=== PATIENT | female | born 1995 | race Caucasian/White ===

== ENCOUNTER 2024-06-26 06:14 | Emergency (ER) | payer OTHER, SELFPAY ==
[2024-06-26 06:17] VITALS: BP 114/76; PULSE 92; TEMP 36.9; O2SAT 100; BMI 25.0
--- NOTE | 2024-06-26 06:35 | ECG_ITS ---
The [facility] Test Date: 2024-06-26 Pat Name: ELIZABETH TAVARES Department: Room: - Gender: Female Skiver Hand: : 1995 Requested By: [id number] Order Number: [id number] Reading MD: RUBENS PERSAUD Measurements Intervals [place] Rate: 86 P: 79 MA: 132 QRS: 84 QRSD: 100 T: 68 QT: 376 QTc: 420 Interpretive Statements 1100 Sinus rhythm 2420 RSR (QR) in lead V1/V2, consistent with right ventricular conduction delay 9130 borderline ECG No previous ECG available for comparison Electronically Signed On 06-28-2024 16:27:30 EST by RUBENS PERSAUD
--- NOTE | 2024-06-26 06:38 | ED.GENADUL1 ---
HPI HPI - General Adult General Chief complaint: Skin/Abscess/Foreign Body Stated complaint: OTHER SKIN Time Seen by Provider: 06/26/24 06:25 Source: patient Mode of arrival: walk-in Limitations: no limitations History of Present Illness HPI narrative: This 28-year-old female presents for evaluation of an open draining abscess on her right upper abdominal wall. That has been present for approximately 1 week. She states she has been picking at it has been bleeding and a certain amount of purulent drainage has been coming out of it. Additionally she states that on June 12 she had a seizure or 2. She lives with a roommate who has security cameras in the house. She states that he came home and thought she had been given a kosta or something because of the way she was acting. The patient states that all she remembers is being at home and waking up on the floor. She broke off both front teeth and one of the teeth was in her lower lip. She had bit her tongue. She states she twisted her ankle and also hit her head as far as she knows when she had the seizure. She does not think she is because prior to having the seizure she had taken a test. She states that since the seizure she has had trouble remembering things. She tried to call around to get an appointment to get evaluated for the seizure but cannot get into see anybody so she came to the emergency department for evaluation. The patient does state that she has a history of migraine headaches and in the past had attacks of brief episodes of blindness followed by syncope. She was seen at [facility] and told that she was having 'Vulgar attacks'. At this time she denies any headache. She has no blurred vision slurred speech or confusion. Her neuroexam is normal. Related Data Previous Rx's ?Medication ?Instructions ?Recorded clindamycin HCl 300 mg capsule 300 mg PO Q6H 10 days #40 caps 06/26/24 Allergies Allergy/AdvReac Type Severity Reaction Status Date / Time No Known Drug Allergies Allergy Verified 06/26/24 06:21 Opioid HPI Opioid Management Most Recent Opioid Data: Ur Phencyclidine Scrn Negative (NEGATIVE) 06/26/24 07:35 06/26/24 Review of Systems ROS Status of ROS 10 or more systems reviewed and unremarkable except as noted in history and below PFSH PFSH Social History Little interest or pleasure in doing things: not at all Feeling down, depressed, or hopeless: not at all Exam Narrative Exam Narrative: Vital signs and Nursing Notes reviewed: Patient is afebrile with a normal pulse, normal blood pressure, she is not hypoxic with pulse ox of 100% on room air General: Awake, alert, oriented, no acute distress, lying comfortably on the stretcher HEENT: Normocephalic atraumatic, mucous membranes are moist and pink, eyes are clear, normal conjunctiva, vision is grossly intact, posterior pharynx is normal in appearance. Patient's front teeth have been broken in the center. No sign of necrotizing gingivitis. No jaw tenderness Neck: Supple, no meningeal signs, no anterior or posterior cervical lymphadenopathy Chest: Lungs are clear to auscultation with good air entry, there is no wheezing rhonchi or rales appreciated no accessory muscle use, patient is speaking in complete sentences-no chest wall tenderness to palpation CVS: Regular rate and rhythm S1-S2, no murmurs rubs or gallops, pulses are brisk and equal bilaterally ABD: Soft, nondistended, nontender, no rebound guarding or rigidity, bowel sounds are normal, no pulsatile masses appreciated Extremities: Moving all extremities, no lower extremity tenderness or swelling noted, negative Homans' sign, pulses are brisk and equal bilaterally Skin: Approximately 1 cm x 1 cm soft, fluctuant abscess to the right upper abdominal wall. There is mild local erythema but no sign of diffuse cellulitis Neuro: No focal deficits, speech is clear, there is no facial droop, process assistant strength is intact, upper and lower extremity strength and sensation is intact, negative pronator drift, positive rapid alternating hand movements Constitutional Vital Signs, click to edit/add: Last Vital Signs Temp 98.4 F 06/26/24 06:17 Pulse 92 H 06/26/24 06:17 Resp 16 06/26/24 06:17 BP 114/76 06/26/24 06:17 Pulse Ox 100 06/26/24 06:17 O2 Del Method Room Air 06/26/24 06:17 Course Vital Signs Vital signs: Vital Signs Temperature 98.4 F 06/26/24 06:17 Pulse Rate 92 H 06/26/24 06:17 Respiratory Rate 16 06/26/24 06:17 Blood Pressure 114/76 06/26/24 06:17 Pulse Oximetry 100 06/26/24 06:17 Oxygen Delivery Method Room Air 06/26/24 06:17 Temperature 98.4 F 06/26/24 06:17 Pulse Rate 92 H 06/26/24 06:17 Respiratory Rate 16 06/26/24 06:17 Blood Pressure 114/76 06/26/24 06:17 Pulse Oximetry 100 06/26/24 06:17 Oxygen Delivery Method Room Air 06/26/24 06:17 Medical Decision Making Lab Data Labs: Lab Results 06/26/24 06/26/24 06/26/24 Range/Units 06:28 06:47 07:35 WBC 16.9 H (4.0-11.0) 10^3/uL RBC 4.46 (4.20-5.40) 10^6/uL Hgb 14.0 (12.0-16.0) g/dL Hct 40.7 (36.0-48.0) % MCV 91.3 (81.0-99.0) fL MCH 31.4 (26.7-34.0) pg MCHC 34.4 (29.9-35.2) g/dL RDW 11.9 (11.0-15.0) % Plt Count 241 (150-450) 10^3/uL MPV 10.7 (9.5-13.5) fL Seg Neuts % (Manual) 71.0 (43.0-75.0) Band Neutrophils % 3.0 (0-5) % Lymphocytes % (Manual) 14.0 L (20.5-60.0) % Monocytes % (Manual) 10.0 (1.7-12.0) % Eosinophils % (Manual) 2.0 (0.9-7.0) % Basophils % (Manual) 0.0 L (0.2-2.0) % Neutrophils # (Manual) 11.99 H (1.4-6.5) 10^3/uL Band Neutrophils # 0.5 H (0.0-0.3) 10^3/uL Lymphocytes # (Manual) 2.36 (1.20-3.80) 10^3/uL Monocytes # (Manual) 1.69 H (0.30-0.80) 10^3/uL Eosinophils # (Manual) 0.33 (0.00-0.70) 10^3/uL Basophils # (Manual) 0.00 (0.00-0.10) 10^3/uL Sodium 141 (136-145) mmol/L Potassium 3.3 L (3.5-5.1) mmol/L Chloride 105 (98-107) mmol/L Carbon Dioxide 28.2 (21.0-32.0) mmol/L Anion Gap 11.1 BUN 15.0 (7.0-18.0) mg/dL Creatinine 0.91 (0.55-1.02) mg/dL Est GFR ( Amer) >60 (>=60 mL/min/1.73m^2) Est GFR (Non-Af Amer) >60 (>=60 mL/min/1.73m^2) BUN/Creatinine Ratio 16.5 Glucose 97 (74-106) mg/dL Lactate 0.8 (0.4-2.0) mmol/L Calcium 9.2 (8.5-10.1) mg/dL Total Bilirubin 0.3 (0.2-1.0) mg/dL AST 30 (15-37) U/L ALT 37 (14-59) U/L Alkaline Phosphatase 81 (46-116) U/L Total Protein 6.8 (6.4-8.2) g/dL Albumin 3.9 (3.4-5.0) g/dL Globulin 2.9 g/dL Albumin/Globulin Ratio 1.3 Urine Color Yellow (YELLOW) Urine Clarity Clear (CLEAR) Urine pH 6.0 (5.0-9.0) Ur Specific [place] >=1.030 A (1.005-1.025) Urine Protein Negative (NEG/TRACE) mg/dL Urine Glucose (UA) Negative (NEGATIVE) mg/dL Urine Ketones Negative (NEGATIVE) mg/dL Urine Occult Blood Negative (NEGATIVE) Urine Nitrite Negative (NEGATIVE) Urine Bilirubin Negative (NEGATIVE) Urine Urobilinogen 1.0 (0.2-1.0) EU/dL Ur Leukocyte Esterase Negative (NEGATIVE) Urine RBC None seen (0-2) #/HPF Urine WBC 0-2 A (NONE SEEN) #/HPF Ur Squamous Epith Cells Moderate A (NONE/RARE) #/LPF Urine Bacteria Trace A (NONE SEEN) #/HPF Urine Mucus Large A (NONE SEEN) Urine HCG, Qual Negative (NEGATIVE) Urine Opiates Screen Negative (NEGATIVE) Ur Buprenorphine Scrn Negative (NEGATIVE) Ur Oxycodone Screen Negative (NEGATIVE) Urine Methadone Screen Negative (NEGATIVE) Ur Barbiturates Screen Negative (NEGATIVE) U Tricyclic Antidepress Negative (NEGATIVE) Ur Phencyclidine Scrn Negative (NEGATIVE) Ur Amphetamines Screen Negative (NEGATIVE) U Methamphetamines Scrn Negative (NEGATIVE) U Benzodiazepines Scrn Negative (NEGATIVE) Urine Cocaine Screen Positive A (NEGATIVE) U Cannabinoids Screen Negative (NEGATIVE) Ref Lab Order Date 06/26/24 Ref Lab Test Name Abdominal cx Ref Test Addition Info [facility] ECG Data Attestation: I personally reviewed and interpreted this ECG as follows: (Sinus rhythm at 86 bpm, normal axis, RSR in lead V1 and V2 consistent with right ventricular conduction delay, no acute ST segment elevation or T wave inversion) Discharge Plan Discharge Chief Complaint: Skin/Abscess/Foreign Body Clinical Impression: Abscess of skin or subcutaneous tissue, Seizure Patient Disposition: Home, Self-Care Time of Disposition Decision: 08:38 Condition: Good Mode of Transportation: Private Vehicle Prescriptions / Home Meds: New clindamycin HCl 300 mg capsule 300 mg PO Q6H 10 Days Qty: 40 0RF Print Language: Thai Instructions: Clindamycin (By mouth), Abscess (ED), New-Onset Seizure in Adults (ED) Referrals: Jayshree Horn DO [Physician] - 1 week Physician,Non-Staff, MD [Primary Care Provider] - 1 week Discharge Date/Time: 06/26/24 08:53
[2024-06-26] MEDS: CLINDAMYCIN PHOSPHATE/D5W 600 MG/50 ML PREMIX 100 MG IV (06:58)
[2024-06-26] MEDS: LIDOCAINE HCL 1% 100 MG/10 ML MDV INJ (07:02)
[2024-06-26 07:05] LABS: BOX Test Reference Lab FIRELANDS; BOX Test Sent Out ABDOMINAL CX
[2024-06-26 07:05] LABS: Hematocrit 40.7 % (36.0-48.0); Mean Corpuscular HGB Conc 34.4 g/dL (29.9-35.2); Mean Corpuscular Hemoglobin 31.4 pg (26.7-34.0); Mean Corpuscular Volume 91.3 fL (81.0-99.0); Mean Platelet Volume 10.7 fL (9.5-13.5); Platelet Count 241 10^3/uL (150-450); Red Blood Count 4.46 10^6/uL (4.20-5.40); Red Cell Distribution Width 11.9 % (11.0-15.0); White Blood Count 16.9 10^3/uL (4.0-11.0)
--- NOTE | 2024-06-26 07:11 | PC.NURSE ---
Patient mentioned to Dr. Cowart that she had a seizure on 06/12 and that she did not seek medical treatment for the seizure. She has no history of seizures and has no family history of seizures. She did fall and hit her head and chipped both of her front teeth on her lip piercing during the seizure. Since the seizure she has been having issues with her memory and not been feeling well. She mentions to me that she is a cocaine user. She also mentions that she has been vomiting several times daily for the past few days. She thinks it is because she drank after her roommate that had a stomach bug.
[2024-06-26 07:17] LABS: Alanine Aminotransferase 37 U/L (14-59); Albumin Globulin Ratio 1.3; Albumin Level 3.9 g/dL (3.4-5.0); Alkaline Phosphatase 81 U/L (46-116); Anion Gap 11.1; Aspartate Amino Transferase 30 U/L (15-37); BUN Creatinine Ratio 16.5; Bilirubin Total 0.3 mg/dL (0.2-1.0); Calcium 9.2 mg/dL (8.5-10.1); Carbon Dioxide 28.2 mmol/L (21.0-32.0); Chloride 105 mmol/L (98-107); Estimated GFR (African America >60 (>=60 mL/min/1.73m^2); Estimated GFR (Non-African Ame >60 (>=60 mL/min/1.73m^2); Globulin 2.9 g/dL; Glucose 97 mg/dL (74-106); Potassium 3.3 mmol/L (3.5-5.1); Sodium 141 mmol/L (136-145); Total Protein 6.8 g/dL (6.4-8.2)
[2024-06-26 07:22] LABS: Lactate/Lactic Acid 0.8 mmol/L (0.4-2.0)
--- NOTE | 2024-06-26 07:24 | CT_ITS ---
The [address] [address] Patient Name: ELIZABETH TAVARES MRN: [id number] date: 1995 Sex: F Assigned Patient Location: ER Current Patient Location: ER Accession/Order Number: [id number] Exam Date: 06/26/2024 07:18 Report Date: 06/26/2024 07:52 At the request of: TOSHA MARKER Procedure: CT head/brain wo con EXAM: CT head/brain wo con HISTORY: new onset seizure COMPARISON: None. TECHNIQUE: Contiguous transaxial images were obtained from skull base to vertex without administration of intravenous contrast. Dose reduction: mA and/or kV are were adjusted by automated exposure control software based upon patients height and weight. FINDINGS: There is no focal scalp soft tissue swelling or acute calvarial fracture. The visualized globes and orbits are grossly normal. Visualized paranasal sinuses are clear. Bilateral mastoid air cells are clear. The ventricles and sulci are normal and symmetric bilaterally. Hypoattenuation at bilateral posterior temporal lobes may be due to beam hardening artifact from adjacent calvarium. There is no intraparenchymal hemorrhage, extraaxial fluid collection, or discrete mass lesion by noncontrast CT. CT/CT head/brain wo con IMPRESSION: 1. No acute intracranial hemorrhage. 2. Hypoattenuation at bilateral posterior temporal lobes that may be due to beam hardening artifact from adjacent calvarium although other etiologies cannot be entirely excluded. Given patient's clinical history, recommend brain MRI for further evaluation. If the patient has a focal neurologic deficit or there is clinical suspicion for acute cerebrovascular accident, brain MRI would be recommended for further evaluation. Electronically authenticated by: ELLIOT ANAYA Date: 06/26/2024 07:52
[2024-06-26] MEDS: 0.9 % SODIUM CHLORIDE 1,000 ML 1000 ML IV (07:34)
[2024-06-26 07:35] LABS: Band Neutrophils Absolute 0.5 10^3/uL (0.0-0.3); Lymphocytes Absolute Manual 2.36 10^3/uL (1.20-3.80); Segmented Neut Absolute Manual 11.99 10^3/uL (1.4-6.5)
[2024-06-26 07:36] LABS: Eosinophils Absolute Manual 0.33 10^3/uL (0.00-0.70); Monocytes Absolute Manual 1.69 10^3/uL (0.30-0.80)
[2024-06-26 08:02] LABS: Bilirubin Urine NEGATIVE (NEGATIVE); Blood Urine NEGATIVE (NEGATIVE); Clarity Urine CLEAR (CLEAR); Color Urine YELLOW (YELLOW); Glucose Urine UA NEGATIVE (NEGATIVE); Ketones Urine NEGATIVE (NEGATIVE); Leukocyte Esterase Urine NEGATIVE (NEGATIVE); Nitrite Urine NEGATIVE (NEGATIVE); Protein Urine NEGATIVE (NEG/TRACE); Specific Gravity Urine >=1.030 (1.005-1.025)
[2024-06-26 08:04] LABS: HCG Qualitative Urine* NEGATIVE (NEGATIVE); Internal Control Within Normal Limits
[2024-06-26 08:08] LABS: WBC Urine 0-2 #/HPF (NONE SEEN)
[2024-06-26 08:09] LABS: Bacteria Urine TRACE #/HPF (NONE SEEN); Mucus Urine LARGE (NONE SEEN); RBC Urine NONE SEEN #/HPF (0-2); Squamous Epithelial Cell Urine MODERATE #/LPF (NONE/RARE)
[2024-06-26 08:12] LABS: Amphetamine Screen Urine NEGATIVE (NEGATIVE); Barbiturates Screen Urine NEGATIVE (NEGATIVE); Benzodiazepines Screen Urine NEGATIVE (NEGATIVE); Buprenorphine Screen Urine NEGATIVE (NEGATIVE); Cannabinoid Screen Urine NEGATIVE (NEGATIVE); Cocaine Screen Urine POSITIVE (NEGATIVE); Methadone Screen Urine NEGATIVE (NEGATIVE); Methamphetamines Screen Urine NEGATIVE (NEGATIVE); Opiate Screen Urine NEGATIVE (NEGATIVE); Oxycodone Screen Urine NEGATIVE (NEGATIVE); Phencyclidine Screen Urine NEGATIVE (NEGATIVE); Tricyclic Antidepressant Urine NEGATIVE (NEGATIVE)
--- NOTE | 2024-06-26 08:39 | ED_ITS ---
HPI HPI - General Adult General Chief complaint: Skin/Abscess/Foreign Body Stated complaint: OTHER SKIN Time Seen by Provider: 06/26/24 06:25 Source: patient Mode of arrival: walk-in Limitations: no limitations History of Present Illness HPI narrative: 28-year-old female presents to the emergency department and was initially seen by Dr. Cowart and signed out to me after discussing the case with her thoroughly. Please see her full history and physical exam. Related Data Previous Rx's ?Medication ?Instructions ?Recorded clindamycin HCl 300 mg capsule 300 mg PO Q6H 10 days #40 caps 06/26/24 Allergies Allergy/AdvReac Type Severity Reaction Status Date / Time No Known Drug Allergies Allergy Verified 06/26/24 06:21 Opioid HPI Opioid Management Most Recent Opioid Data: Ur Phencyclidine Scrn Negative (NEGATIVE) 06/26/24 07:35 05/29 07/20 PFSH PFSH Social History Little interest or pleasure in doing things: not at all Feeling down, depressed, or hopeless: not at all Exam Constitutional Vital Signs, click to edit/add: Last Vital Signs Temp 98.4 F 06/26/24 06:17 Pulse 92 H 06/26/24 06:17 Resp 16 06/26/24 06:17 BP 114/76 06/26/24 06:17 Pulse Ox 100 06/26/24 06:17 O2 Del Method Room Air 06/26/24 06:17 Course Vital Signs Vital signs: Vital Signs Temperature 98.4 F 06/26/24 06:17 Pulse Rate 92 H 06/26/24 06:17 Respiratory Rate 16 06/26/24 06:17 Blood Pressure 114/76 06/26/24 06:17 Pulse Oximetry 100 06/26/24 06:17 Oxygen Delivery Method Room Air 06/26/24 06:17 Temperature 98.4 F 06/26/24 06:17 Pulse Rate 92 H 06/26/24 06:17 Respiratory Rate 16 06/26/24 06:17 Blood Pressure 114/76 06/26/24 06:17 Pulse Oximetry 100 06/26/24 06:17 Oxygen Delivery Method Room Air 06/26/24 06:17 Medical Decision Making MDM Narrative Medical decision making narrative: CT brain does not show any definite acute findings and drug testing is positive for cocaine which the patient admits. She is discharged home on clindamycin and was referred to neurology for follow-up for possible seizure. Treatment diagnosis and follow-up were discussed with the patient. Lab Data Lab results reviewed: Yes I reviewed the patient's lab results Labs: Lab Results 06/26/24 06/26/24 06/26/24 Range/Units 06:28 06:47 07:35 WBC 16.9 H (4.0-11.0) 10^3/uL RBC 4.46 (4.20-5.40) 10^6/uL Hgb 14.0 (12.0-16.0) g/dL Hct 40.7 (36.0-48.0) % MCV 91.3 (81.0-99.0) fL MCH 31.4 (26.7-34.0) pg MCHC 34.4 (29.9-35.2) g/dL RDW 11.9 (11.0-15.0) % Plt Count 241 (150-450) 10^3/uL MPV 10.7 (9.5-13.5) fL Seg Neuts % (Manual) 71.0 (43.0-75.0) Band Neutrophils % 3.0 (0-5) % Lymphocytes % (Manual) 14.0 L (20.5-60.0) % Monocytes % (Manual) 10.0 (1.7-12.0) % Eosinophils % (Manual) 2.0 (0.9-7.0) % Basophils % (Manual) 0.0 L (0.2-2.0) % Neutrophils # (Manual) 11.99 H (1.4-6.5) 10^3/uL Band Neutrophils # 0.5 H (0.0-0.3) 10^3/uL Lymphocytes # (Manual) 2.36 (1.20-3.80) 10^3/uL Monocytes # (Manual) 1.69 H (0.30-0.80) 10^3/uL Eosinophils # (Manual) 0.33 (0.00-0.70) 10^3/uL Basophils # (Manual) 0.00 (0.00-0.10) 10^3/uL Sodium 141 (136-145) mmol/L Potassium 3.3 L (3.5-5.1) mmol/L Chloride 105 (98-107) mmol/L Carbon Dioxide 28.2 (21.0-32.0) mmol/L Anion Gap 11.1 BUN 15.0 (7.0-18.0) mg/dL Creatinine 0.91 (0.55-1.02) mg/dL Est GFR ( Amer) >60 (>=60 mL/min/1.73m^2) Est GFR (Non-Af Amer) >60 (>=60 mL/min/1.73m^2) BUN/Creatinine Ratio 16.5 Glucose 97 (74-106) mg/dL Lactate 0.8 (0.4-2.0) mmol/L Calcium 9.2 (8.5-10.1) mg/dL Total Bilirubin 0.3 (0.2-1.0) mg/dL AST 30 (15-37) U/L ALT 37 (14-59) U/L Alkaline Phosphatase 81 (46-116) U/L Total Protein 6.8 (6.4-8.2) g/dL Albumin 3.9 (3.4-5.0) g/dL Globulin 2.9 g/dL Albumin/Globulin Ratio 1.3 Urine Color Yellow (YELLOW) Urine Clarity Clear (CLEAR) Urine pH 6.0 (5.0-9.0) Ur Specific [place] >=1.030 A (1.005-1.025) Urine Protein Negative (NEG/TRACE) mg/dL Urine Glucose (UA) Negative (NEGATIVE) mg/dL Urine Ketones Negative (NEGATIVE) mg/dL Urine Occult Blood Negative (NEGATIVE) Urine Nitrite Negative (NEGATIVE) Urine Bilirubin Negative (NEGATIVE) Urine Urobilinogen 1.0 (0.2-1.0) EU/dL Ur Leukocyte Esterase Negative (NEGATIVE) Urine RBC None seen (0-2) #/HPF Urine WBC 0-2 A (NONE SEEN) #/HPF Ur Squamous Epith Cells Moderate A (NONE/RARE) #/LPF Urine Bacteria Trace A (NONE SEEN) #/HPF Urine Mucus Large A (NONE SEEN) Urine HCG, Qual Negative (NEGATIVE) Urine Opiates Screen Negative (NEGATIVE) Ur Buprenorphine Scrn Negative (NEGATIVE) Ur Oxycodone Screen Negative (NEGATIVE) Urine Methadone Screen Negative (NEGATIVE) Ur Barbiturates Screen Negative (NEGATIVE) U Tricyclic Antidepress Negative (NEGATIVE) Ur Phencyclidine Scrn Negative (NEGATIVE) Ur Amphetamines Screen Negative (NEGATIVE) U Methamphetamines Scrn Negative (NEGATIVE) U Benzodiazepines Scrn Negative (NEGATIVE) Urine Cocaine Screen Positive A (NEGATIVE) U Cannabinoids Screen Negative (NEGATIVE) Ref Lab Order Date 06/26/24 Ref Lab Test Name Abdominal cx Ref Test Addition Info [facility], [facility] scan - head: Radiologist's impression: ITS Impressions Head CT 06/26/24 07:24 IMPRESSION: 1. No acute intracranial hemorrhage. 2. Hypoattenuation at bilateral posterior temporal lobes that may be due to beam hardening artifact from adjacent calvarium although other etiologies cannot be entirely excluded. Given patient's clinical history, recommend brain MRI for further evaluation. If the patient has a focal neurologic deficit or there is clinical suspicion for acute cerebrovascular accident, brain MRI would be recommended for further evaluation. Electronically authenticated by: ELLIOT ANAYA Date: 06/26/2024 07:52 ECG Data Attestation: I personally reviewed and interpreted this ECG as follows: (EKG on my interpretation shows normal sinus rhythm with a rate of 86 and no acute change) Discharge Plan Discharge Chief Complaint: Skin/Abscess/Foreign Body Clinical Impression: Abscess of skin or subcutaneous tissue, Seizure Patient Disposition: Home, Self-Care Time of Disposition Decision: 08:38 Condition: Good Mode of Transportation: Private Vehicle Prescriptions / Home Meds: New clindamycin HCl 300 mg capsule 300 mg PO Q6H 10 Days Qty: 40 0RF Print Language: Maltese Instructions: Abscess (ED) Referrals: Jayshree Horn DO [Physician] - 1 week Physician,Non-Staff, MD [Primary Care Provider] - 1 week
== END 2024-06-26 08:53 | disposition home or self-care (01) ==
PROVIDERS: Emergency Medicine; Emergency Provider Emergency Medicine
DX: R56.9 Unspecified convulsions (principal); L02.211 Cutaneous abscess of abdominal wall; F14.90 Cocaine use, unspecified, uncomplicated
CPT/HCPCS: 36415; 70450; 80053; 80307; 81001; 83605; 84703; 85007; 85027; 87070; 87075; 87205; 93005; 96365; 99285

== ENCOUNTER 2024-11-18 03:17 | Emergency (ER) | payer OTHER, SELFPAY ==
[2024-11-18] VITALS (10 sets, daily range): BP systolic 113; BP diastolic 65; PULSE 81–100; TEMP 36.6; O2SAT 95–99; BMI 24.1
--- NOTE | 2024-11-18 03:42 | ED_ITS ---
HPI - Seizure General Chief Complaint: Seizure Stated Complaint: seizures Time Seen by Provider: 11/18/24 03:27 Source: patient Mode of arrival: walk-in Limitations: no limitations History of Present Illness HPI Narrative: cc - multiple seizures Pt states she had seven seizures since 9pm. She said that she was first diagnosed with seizure disorder in April 2024, was started on meds and then her neurologist - who she calls Amaris who is a specialist in [place] - stopped those meds. She said that she began a new prescription on October 25 and showed me a picture on her phone of a prescription with her name on it for oxcarbazepine. She said she has takenit for a few days. No injuries associated with the seizures tonight. She was driven from [place] to our ED by another person. No recent injury or illness preceding viet's seizure activity Seizure History: Yes Place: home Related Data Home Medications ?Medication ?Instructions ?Recorded ?Confirmed oxcarbazepine 300 mg tablet 450 mg PO BID 11/18/24 Allergies Allergy/AdvReac Type Severity Reaction Status Date / Time No Known Drug Allergies Allergy Verified 11/18/24 03:22 PFSH PFSH Social History Little interest or pleasure in doing things: not at all Feeling down, depressed, or hopeless: not at all Exam Narrative Exam Narrative: Nurses notes and vital signs reviewed and patient is not hypoxic. afebrile General: Well-appearing and in no apparent distress. Skin: Warm, dry, no pallor noted. No rash. Head: Normocephalic, atraumatic. Neck: Supple, non-tender. No meningismus. No lymphadenopathy. Eye: Pupils are equal, round and EOMI. No scleral icterus. Ears, Nose, Mouth, and Throat: TM are clear, no posterior oropharynx erythema or nasal mucosal hypertrophy, uvula is mid-line Oral mucosa is moist Cardiovascular: Tachycardic. Respiratory: No accessory muscle use or respiratory distress. Lungs are clear to auscultation, no wheezing, rales or rhonchi Chest Wall: no tenderness, crepitus or subcutaneous emphysema. Back: No midline thoracic or lumbar vertebral tenderness. Musculoskeletal: normal ROM, no calf or popliteal tenderness, no lower extremity edema/swelling, no sign of long bone fracture or extremity injury GI: Abdomen is soft, non-distended. Normal bowel sounds. No tenderness to palpation. No rebound, guarding, or rigidity noted. Neurological: A&O x4. No cranial nerve dysfunction observed. No truncal ataxia. Moves all extremities. Sensation intact. Psychiatric: Cooperative and interactive. Normal mood and affect. Constitutional Vital Signs, click to edit/add: Last Vital Signs Temp 97.9 F 11/18/24 03:22 Pulse 81 11/18/24 04:30 Resp 18 11/18/24 04:30 BP 113/65 11/18/24 03:24 Pulse Ox 98 11/18/24 04:30 O2 Del Method Room Air 11/18/24 03:34 Course Vital Signs Vital signs: Vital Signs Temperature 97.9 F 11/18/24 03:22 Pulse Rate 100 H 11/18/24 03:22 Respiratory Rate 16 11/18/24 03:22 Blood Pressure 113/65 11/18/24 03:22 Pulse Oximetry 97 11/18/24 03:22 Oxygen Delivery Method Room Air 11/18/24 03:22 Temperature 97.9 F 11/18/24 03:22 Pulse Rate 81 11/18/24 04:30 Respiratory Rate 18 11/18/24 04:30 Blood Pressure 113/65 11/18/24 03:24 Pulse Oximetry 98 11/18/24 04:30 Oxygen Delivery Method Room Air 11/18/24 03:34 MDM - Seizure MDM Narrative Medical decision making narrative: Seizure precautions initiated. Patient placed on manager monitoring with continuous pulse ox Patient was placed on manager monitoring and EKG obtained. Blood drawn and sent for evaluation. Urine was also ordered to be obtained and sent for testing. She was sent for noncontrast CT scanning of the brain. She denies chance of saying that she is menstruating right now . WBC elevated at 14k - remainder of the workup was negative. No seizure activity while in ED She was discharged home with recommendation to see her Neurologist this week. Lab Data Attestation: I reviewed the patient's lab results. Labs: Lab Results 11/18/24 Range/Units 03:30 WBC 14.3 H (4.0-11.0) 10^3/uL RBC 4.47 (4.20-5.40) 10^6/uL Hgb 14.0 (12.0-16.0) g/dL Hct 41.7 (36.0-48.0) % MCV 93.3 (81.0-99.0) fL MCH 31.3 (26.7-34.0) pg MCHC 33.6 (29.9-35.2) g/dL RDW 12.1 (11.0-15.0) % Plt Count 220 (150-450) 10^3/uL MPV 11.0 (9.5-13.5) fL Neut % (Auto) 72.7 (43.0-75.0) % Lymph % (Auto) 15.4 L (20.5-60.0) % [place] % (Auto) 8.1 (1.7-12.0) % Eos % (Auto) 1.6 (0.9-7.0) % Baso % (Auto) 0.8 (0.2-2.0) % Neut # (Auto) 10.4 H (1.4-6.5) 10^3/uL Lymph # (Auto) 2.2 (1.2-3.8) 10^3/uL [place] # (Auto) 1.2 H (0.3-0.8) 10^3/uL Eos # (Auto) 0.2 (0.0-0.7) 10^3/uL Baso # (Auto) 0.1 (0.0-0.1) 10^3/uL Abs Immat Gran (auto) 0.20 H (0.00-0.03) 10^3/uL Imm/Tot Granulo (auto) 1.4 H (0.0-0.5) % Sodium 139 (136-145) mmol/L Potassium 3.3 L (3.5-5.1) mmol/L Chloride 103 (98-107) mmol/L Carbon Dioxide 28.5 (21.0-32.0) mmol/L Anion Gap 10.8 BUN 16.0 (7.0-18.0) mg/dL Creatinine 0.79 (0.55-1.02) mg/dL Est GFR ( Amer) >60 (>=60 mL/min/1.73m^2) Est GFR (Non-Af Amer) >60 (>=60 mL/min/1.73m^2) BUN/Creatinine Ratio 20.3 Glucose 108 H (74-106) mg/dL Calcium 8.8 (8.5-10.1) mg/dL Total Bilirubin 0.5 (0.2-1.0) mg/dL AST 14 L (15-37) U/L ALT 16 (14-59) U/L Alkaline Phosphatase 70 (46-116) U/L Total Protein 7.0 (6.4-8.2) g/dL Albumin 3.8 (3.4-5.0) g/dL Globulin 3.2 g/dL Albumin/Globulin Ratio 1.2 Serum HCG, Qual Negative (NEGATIVE) Discharge Plan Discharge Chief Complaint: Seizure Clinical Impression: Seizure Patient Disposition: Home, Self-Care Time of Disposition Decision: 04:45 Prescriptions / Home Meds: No Action oxcarbazepine 300 mg tablet 450 mg PO BID Print Language: [place] Citizen Instructions: Recurrent Seizures in Adults (ED) Referrals: Physician,Non-Staff, MD [Primary Care Provider] - 1 week
[2024-11-18 04:08] LABS: HCG Qualitative NEGATIVE (NEGATIVE)
[2024-11-18 04:09] LABS: Internal Control Within Normal Limits
[2024-11-18 04:13] LABS: Basophils Absolute Auto 0.1 10^3/uL (0.0-0.1); Basophils Percent Auto 0.8 % (0.2-2.0); Eosinophils Absolute Auto 0.2 10^3/uL (0.0-0.7); Eosinophils Percent Auto 1.6 % (0.9-7.0); Hematocrit 41.7 % (36.0-48.0); Immature Granulocytes Pct Auto 1.4 % (0.0-0.5); Lymphocytes Absolute Auto 2.2 10^3/uL (1.2-3.8); Lymphocytes Percent Auto 15.4 % (20.5-60.0); Mean Corpuscular HGB Conc 33.6 g/dL (29.9-35.2); Mean Corpuscular Hemoglobin 31.3 pg (26.7-34.0); Mean Corpuscular Volume 93.3 fL (81.0-99.0); Monocytes Absolute Auto 1.2 10^3/uL (0.3-0.8); Monocytes Percent Auto 8.1 % (1.7-12.0); Neutrophils Absolute Auto 10.4 10^3/uL (1.4-6.5); Neutrophils Percent Auto 72.7 % (43.0-75.0); Platelet Count 220 10^3/uL (150-450); Red Blood Count 4.47 10^6/uL (4.20-5.40); Red Cell Distribution Width 12.1 % (11.0-15.0); White Blood Count 14.3 10^3/uL (4.0-11.0)
[2024-11-18 04:14] LABS: Alanine Aminotransferase 16 U/L (14-59); Albumin Globulin Ratio 1.2; Albumin Level 3.8 g/dL (3.4-5.0); Alkaline Phosphatase 70 U/L (46-116); Anion Gap 10.8; Aspartate Amino Transferase 14 U/L (15-37); BUN Creatinine Ratio 20.3; Bilirubin Total 0.5 mg/dL (0.2-1.0); Calcium 8.8 mg/dL (8.5-10.1); Carbon Dioxide 28.5 mmol/L (21.0-32.0); Chloride 103 mmol/L (98-107); Estimated GFR (African America >60 (>=60 mL/min/1.73m^2); Estimated GFR (Non-African Ame >60 (>=60 mL/min/1.73m^2); Globulin 3.2 g/dL; Glucose 108 mg/dL (74-106); Potassium 3.3 mmol/L (3.5-5.1); Sodium 139 mmol/L (136-145)
[2024-11-20 12:08] LABS: Prolactin 27.1 ng/mL (4.8-33.4)
[2024-11-23 02:07] LABS: Oxcarbazepine (Trileptal),S 4 ug/mL (10-35)
== END 2024-11-18 04:52 | disposition home or self-care (01) ==
PROVIDERS: Emergency Provider Emergency Medicine
DX: G40.909 Epilepsy, unspecified, not intractable, without status epilepticus (principal)
CPT/HCPCS: 36415; 70450; 80053; 80183; 84146; 84703; 85025; 99284

== ENCOUNTER 2024-11-20 15:12 | Emergency (ER) | payer OTHER, SELFPAY ==
[2024-11-20] VITALS (15 sets, daily range): BP systolic 97–120; BP diastolic 64–81; PULSE 83–108; TEMP 36.6; O2SAT 98–100; BMI 24.1
--- NOTE | 2024-11-20 15:30 | ECG_ITS ---
[facility] Test Date: 2024-11-20 Pat Name: ELIZABETH TAVARES Department: Room: - Gender: Female Adolescent Psychiatrist: : 1995 Requested By: [id number] Order Number: [id number] Reading MD: JUAN BORGES M.D. Measurements Intervals [place] Rate: 93 P: 69 DC: 110 QRS: 83 QRSD: 98 T: 60 QT: 364 QTc: 415 Interpretive Statements 1100 Sinus rhythm 2210 Short DC interval 9150 abnormal ECG Compared to ECG 06/26/2024 06:52:56 Short DC interval now present Electronically Signed On 11-20-2024 19:37:41 EDT by JUAN BORGES M.D.
--- NOTE | 2024-11-20 15:34 | ED_ITS ---
HPI - Seizure General Chief Complaint: Seizure Stated Complaint: HAVING SEIZURE Time Seen by Provider: 11/20/24 15:30 Source: patient Mode of arrival: walk-in History of Present Illness HPI Narrative: 28 year old female presents to the ED for concerns due to having a seizure today. States her roommate witnessed her having a seizure. The patient does not recall the event. States her roommate told her that her whole body was shaking. Pt reports history of seizures. States they occur with stress. She is taking Trileptal; 300 mg tablets 1 1/2 tabs BID. States she cannot take Keppra or Lamictal. She does use crack. States she used prior to her seizure today and again after. States she is feeling well. Denies injury with the seizure. Denies fever, chills, [place], dizziness, vision changes. Denies CP, SOB, N/V/D. Pt records were obtained from [facility]. The patient had an EEG in September,. Results showed: An abnormal 63 hour ambulatory EEG due to high amplitude rhythmic slowing with intermixed spike activity consistent with epileptiform activity records intermittently during the record. She has an order for an MRI that has not yet been completed. Her last visit there was 11/08/24 per the records that were sent. Seizure History: Yes Related Data Previous Rx's ?Medication ?Instructions ?Recorded cephalexin 500 mg capsule 500 mg PO Q8H 5 days #15 cap s 11/20/24 Allergies Allergy/AdvReac Type Severity Reaction Status Date / Time levetiracetam (From Keppra) Allergy Rash Verified 11/20/24 15:19 Review of Systems ROS Constitutional Denies: fever or chills Eyes Denies: change in vision Ears, nose, mouth, and throat Denies: throat pain, neck pain or mouth pain Cardiovascular Denies: chest pain Respiratory Denies: shortness of breath Gastrointestinal Denies: abdominal pain, nausea, vomiting or diarrhea Genitourinary Denies: painful urination, urinary frequency, urinary urgency or urinary incontinence Musculoskeletal Denies: back pain or neck pain Integumentary/Breast Denies: rash Neurological Reports: seizure-like activity; Denies: headache, numbness in extremities, weakness in extremities or dizziness PFSH PFSH Social History Little interest or pleasure in doing things: not at all Feeling down, depressed, or hopeless: several days Exam Constitutional Vital Signs, click to edit/add: Last Vital Signs Temp 97.9 F 11/20/24 15:20 Pulse 85 11/20/24 17:10 Resp 21 H 11/20/24 17:10 BP 97/64 11/20/24 17:00 Pulse Ox 98 11/20/24 17:10 O2 Del Method Room Air 11/20/24 15:20 Common normals: no apparent distress and oriented x3 General appearance: cooperative HENMT Common normals: external ears normal, moist oral mucous membranes and oropharynx normal Mouth: oral and palatal mucosa normal, lip normal and tongue normal Eye Common normals: PERRL, EOMs intact bilaterally, conjunctivae normal and no scleral icterus Neck & C-Spine Common normals: supple Cervical spine: no cervical spine tenderness and no paracervical muscle spasm Chest Chest: symmetrical chest wall rise Respiratory Common normals: normal respiratory effort and clear to auscultation bilaterally Effort & inspection: able to speak in complete sentences and symmetric chest movement Cardio Common normals: regular rate and regular rhythm Back & Pelvis Thoracic spine/upper back: no thoracic spinal tenderness and no paraspinal muscle tenderness Lumbar spine/lower back: no lumbar spinal tenderness and no paraspinal muscle tenderness Extremity Common normals: normal capillary refill Neuro Common normals: oriented x3, CN's II-XII intact bilaterally, moves all extremities and no focal motor deficits Sensorium/orientation: awake and alert Speech: speech normal Gait (neuro): normal gait Course Vital Signs Vital signs: Vital Signs Pulse Oximetry 100 11/20/24 15:19 Temperature 97.9 F 11/20/24 15:20 Pulse Rate 85 11/20/24 17:10 Respiratory Rate 21 H 11/20/24 17:10 Blood Pressure 97/64 11/20/24 17:00 Pulse Oximetry 98 11/20/24 17:10 Oxygen Delivery Method Room Air 11/20/24 15:20 MDM - Seizure MDM Narrative Medical decision making narrative: Trileptal level was pending. Urinalysis showed infection; culture was pending. The patient was alert and oriented here. She did not have any seizure activity here in the ED. She was encouraged to follow up with her pcp and neurologist for a recheck, further evaluation and treatment. A prescription was provided for Keflex. Medical Records Attestation: I reviewed the patient's medical records. Lab Data Attestation: I reviewed the patient's lab results. Labs: Lab Results 11/20/24 11/20/24 Range/Units 15:50 16:00 WBC 9.0 (4.0-11.0) 10^3/uL RBC 4.37 (4.20-5.40) 10^6/uL Hgb 13.9 (12.0-16.0) g/dL Hct 40.3 (36.0-48.0) % MCV 92.2 (81.0-99.0) fL MCH 31.8 (26.7-34.0) pg MCHC 34.5 (29.9-35.2) g/dL RDW 12.2 (11.0-15.0) % Plt Count 235 (150-450) 10^3/uL MPV 10.6 (9.5-13.5) fL Neut % (Auto) 71.1 (43.0-75.0) % Lymph % (Auto) 20.6 (20.5-60.0) % [place] % (Auto) 6.1 (1.7-12.0) % Eos % (Auto) 1.3 (0.9-7.0) % Baso % (Auto) 0.6 (0.2-2.0) % Neut # (Auto) 6.4 (1.4-6.5) 10^3/uL Lymph # (Auto) 1.9 (1.2-3.8) 10^3/uL [place] # (Auto) 0.6 (0.3-0.8) 10^3/uL Eos # (Auto) 0.1 (0.0-0.7) 10^3/uL Baso # (Auto) 0.1 (0.0-0.1) 10^3/uL Abs Immat Gran (auto) 0.03 (0.00-0.03) 10^3/uL Imm/Tot Granulo (auto) 0.3 (0.0-0.5) % Sodium 144 (136-145) mmol/L Potassium 3.5 (3.5-5.1) mmol/L Chloride 104 (98-107) mmol/L Carbon Dioxide 30.0 (21.0-32.0) mmol/L Anion Gap 13.5 BUN 16.0 (7.0-18.0) mg/dL Creatinine 0.81 (0.55-1.02) mg/dL Est GFR ( Amer) >60 (>=60 mL/min/1.73m^2) Est GFR (Non-Af Amer) >60 (>=60 mL/min/1.73m^2) BUN/Creatinine Ratio 19.8 Glucose 163 H (74-106) mg/dL Calcium 8.9 (8.5-10.1) mg/dL Total Bilirubin 0.4 (0.2-1.0) mg/dL AST 10 L (15-37) U/L ALT 21 (14-59) U/L Alkaline Phosphatase 71 (46-116) U/L Total Protein 6.8 (6.4-8.2) g/dL Albumin 4.0 (3.4-5.0) g/dL Globulin 2.8 g/dL Albumin/Globulin Ratio 1.4 Urine Color Yellow (YELLOW) Urine Clarity Clear (CLEAR) Urine pH 6.0 (5.0-9.0) Ur Specific [place] >=1.030 A (1.005-1.025) Urine Protein 100 A (NEG/TRACE) mg/dL Urine Glucose (UA) Negative (NEGATIVE) mg/dL Urine Ketones Trace A (NEGATIVE) mg/dL Urine Occult Blood Moderate A (NEGATIVE) Urine Nitrite Positive A (NEGATIVE) Urine Bilirubin Small A (NEGATIVE) Urine Urobilinogen 1.0 (0.2-1.0) EU/dL Ur Leukocyte Esterase Small A (NEGATIVE) Urine RBC 10-20 A (0-2) #/HPF Urine WBC 5-10 A (NONE SEEN) #/HPF Ur Squamous Epith Cells Few A (NONE/RARE) #/LPF Urine Crystals None seen (None Seen) #/HPF Urine Bacteria Moderate A (NONE SEEN) #/HPF Urine Casts None seen (NONE SEEN) #/LPF Urine Mucus Small A (NONE SEEN) Ur [place] [place], Qual Negative (NEGATIVE) ECG Data Attestation: ?I have reviewed the pertinent ECG results. (EKG was reviewed by the attending physician. It showed sinus rhythm at a rate of 93. No STEMI.) Interpretation: Measurements Intervals [place] Rate: 93 P: 69 AL: 110 QRS: 83 QRSD: 98 T: 60 QT: 364 QTc: 415 Interpretive Statements 1100 Sinus rhythm 1570 with occasional ventricular premature complexes 2210 Short AL interval 9150 abnormal ECG No previous ECG available for comparison Discharge Plan Discharge Chief Complaint: Seizure Clinical Impression: Seizure-like activity, UTI (urinary tract infection) Patient Disposition: Home, Self-Care Time of Disposition Decision: 17:19 Condition: Good Mode of Transportation: Private Vehicle Prescriptions / Home Meds: New cephalexin 500 mg capsule 500 mg PO Q8H 5 Days Qty: 15 0RF Print Language: Barb[place] Instructions: Urinary Tract Infection in Women (DC) Additional Instructions: Return to the ER for worsening symptoms. Follow up with your primary care provider and neurology. Referrals: Physician,Non-Staff, MD [Primary Care Provider] - 1 week
[2024-11-20 16:01] LABS: Basophils Absolute Auto 0.1 10^3/uL (0.0-0.1); Basophils Percent Auto 0.6 % (0.2-2.0); Eosinophils Absolute Auto 0.1 10^3/uL (0.0-0.7); Eosinophils Percent Auto 1.3 % (0.9-7.0); Hematocrit 40.3 % (36.0-48.0); Hemoglobin 13.9 g/dL (12.0-16.0); Immature Granulocytes Abs Auto 0.03 10^3/uL (0.00-0.03); Immature Granulocytes Pct Auto 0.3 % (0.0-0.5); Lymphocytes Absolute Auto 1.9 10^3/uL (1.2-3.8); Lymphocytes Percent Auto 20.6 % (20.5-60.0); Mean Corpuscular HGB Conc 34.5 g/dL (29.9-35.2); Mean Corpuscular Hemoglobin 31.8 pg (26.7-34.0); Mean Corpuscular Volume 92.2 fL (81.0-99.0); Mean Platelet Volume 10.6 fL (9.5-13.5); Monocytes Absolute Auto 0.6 10^3/uL (0.3-0.8); Monocytes Percent Auto 6.1 % (1.7-12.0); Neutrophils Absolute Auto 6.4 10^3/uL (1.4-6.5); Neutrophils Percent Auto 71.1 % (43.0-75.0); Platelet Count 235 10^3/uL (150-450); Red Blood Count 4.37 10^6/uL (4.20-5.40); Red Cell Distribution Width 12.2 % (11.0-15.0)
[2024-11-20 16:17] LABS: Alanine Aminotransferase 21 U/L (14-59); Albumin Globulin Ratio 1.4; Alkaline Phosphatase 71 U/L (46-116); Anion Gap 13.5; Aspartate Amino Transferase 10 U/L (15-37); BUN Creatinine Ratio 19.8; Bilirubin Total 0.4 mg/dL (0.2-1.0); Calcium 8.9 mg/dL (8.5-10.1); Chloride 104 mmol/L (98-107); Estimated GFR (African America >60 (>=60 mL/min/1.73m^2); Estimated GFR (Non-African Ame >60 (>=60 mL/min/1.73m^2); Globulin 2.8 g/dL; Glucose 163 mg/dL (74-106); Potassium 3.5 mmol/L (3.5-5.1); Sodium 144 mmol/L (136-145); Total Protein 6.8 g/dL (6.4-8.2)
[2024-11-20 16:24] LABS: Bilirubin Urine SMALL (NEGATIVE); Blood Urine MODERATE (NEGATIVE); Clarity Urine CLEAR (CLEAR); Color Urine YELLOW (YELLOW); Glucose Urine UA NEGATIVE (NEGATIVE); Ketones Urine TRACE mg/dL (NEGATIVE); Leukocyte Esterase Urine SMALL (NEGATIVE); Nitrite Urine POSITIVE (NEGATIVE); Protein Urine 100 mg/dL (NEG/TRACE); Specific Gravity Urine >=1.030 (1.005-1.025)
[2024-11-20 16:26] LABS: HCG Qualitative Urine* NEGATIVE (NEGATIVE); Internal Control Within Normal Limits
[2024-11-20 16:27] LABS: Urine Microscopic Indicated YES
[2024-11-20 16:36] LABS: Bacteria Urine MODERATE #/HPF (NONE SEEN); Cast Seen? NONE SEEN #/LPF (NONE SEEN); Crystals Seen? None Seen #/HPF (None Seen); Mucus Urine SMALL (NONE SEEN); Squamous Epithelial Cell Urine FEW #/LPF (NONE/RARE); Urine Culture Indicated YES-FRMC
[2024-11-25 21:11] LABS: Oxcarbazepine (Trileptal),S <1 ug/mL (10-35)
== END 2024-11-20 17:40 | disposition home or self-care (01) ==
PROVIDERS: Nurse Practitioner Family; Emergency Provider Emergency Medicine
DX: N39.0 Urinary tract infection, site not specified (principal); R56.9 Unspecified convulsions; Z79.899 Other long term (current) drug therapy
CPT/HCPCS: 36415; 80053; 80183; 81001; 84703; 85025; 87086; 87088; 87186; 93005; 99285